=== PATIENT | female | born 1965 | race Caucasian/White ===

== ENCOUNTER → 2016-05-30 | Outpatient (CLI) | payer BC ==
--- NOTE | 2016-05-30 12:13 | MR ---
PRE AND POSTCONTRAST ENHANCED MRI OF THE BRAIN: CLINICAL HISTORY: LEFT FACIAL NUMBNESS, PTOSIS ON LEFT CONTRAST: 20 ML Multihance COMPARISON: CT brain 04/06/2016 Multiplanar and multispin-echo imaging of the brain was performed both before and after the administr ation of contrast. The ventricles, basal cisterns and sulci overlying the cerebral convexities are within normal limits. There is no evidence for midline shift or mass effect. Acute intracranial hemorrhage or extra-axial collection is not evident. There are no abnormal areas of increased or decreased signal intensity within the brain parenchyma. Following contrast administration, there is no evidence for pathologic enhancement or enhancing mass. The paranasal sinuses and mastoid air cells are well-aerated. IMPRESSION: Unremarkable pre and postcontrast enhanced MRI of the brain.
== END | disposition home or self-care (01) ==
LOC: RADMRIMAIN 09:15
PROVIDERS: ATTEND Psychiatry & Neurology Neurology
DX: H02.402 Unspecified ptosis of left eyelid (principal); R20.0 Anesthesia of skin
CPT/HCPCS: 70553; A9577

== ENCOUNTER → 2018-03-29 | Outpatient (CLI) | payer BC ==
--- NOTE | 2018-03-29 09:19 | US ---
EXAMINATION TYPE: US thyroid st tissue head/neck DATE OF EXAM: 03/29/2018 COMPARISON: Prior thyroid ultrasound dated 09/05/2015 CLINICAL HISTORY: E04.2 Nontoxic Multinodular Goiter. GLAND SIZE: Right Lobe: 5.1 x 1.9 x 1.9 cm Overall Parenchyma: heterogenous Left Lobe: 4.7 x 1.6 x 1.7 cm Overall Parenchyma: heterogeneous Isthmus Thickness: 0.4 cm NODULES RIGHT: # of nodules measured on right: 4 1. 1.1 x 0.9 x0.8 cm isoechoic solid nodule at the upper pole with well-defined margins. This nodul e is wider than tall and shows intranodular vascularity. Prior size: 1.1 x 0.8 x 0.8 cm 2. 1.0 X 0.7 x 0.8 cm hypoechoic solid nodule at the upper pole with well-defined margins; periphera l calcification as on prior. This nodule is wider than tall and shows no intranodular vascularity. Prior size: 1.3 x 1.0 x 1.1 cm 3. 0.8 X 0.5 x 0.8 cm isoechoic solid nodule at the upper pole with well-defined margins. This nodu le is wider than tall and shows intranodular vascularity. Prior size: 1.1 x 0.9 x 1.0 cm 4. 0.9 X 0.6 x 0.9 cm isoechoic solid nodule at the lower pole with well-defined margins. This nodu le is wider than tall and shows no intranodular vascularity. Not seen or definitively measured. LEFT: # of nodules measured on left: 1. 0.7 X 0.5 x 0.7 cm hypoechoic solid nodule at the mid pole with well-defined margins. This nodu le is wider than tall and shows intranodular vascularity. Prior size: 1.5 x 1.0 x 0.9 cm 2. 1.1 X 0.9 x 0.9 cm hypoechoic solid nodule at the mid pole with well-defined margins. This nodul e is wider than tall and shows no intranodular vascularity. Prior size: 1.5x 1.0 x 0.9 cm ISTHMUS: # of nodules measured in the isthmus: 0 Bilateral neck scanned, no evidence of lymphadenopathy. IMPRESSION: Multiple thyroid nodules as described. Findings are essentially stable to slightly improved, one subc entimeter right-sided nodule at the lower pole of the right lobe does not appear discrete and was not measured on prior exam
[2018-03-29 09:38] LABS: T4, Free (Free Thyroxine) 1.31 ng/dL (0.78-2.19)
== END | disposition home or self-care (01) ==
LOC: RADUSWWP 07:59
PROVIDERS: ATTEND Internal Medicine Endocrinology, Diabetes & Metabolism
DX: E04.2 Nontoxic multinodular goiter (principal)
CPT/HCPCS: 36415; 76536; 84439; 84443

== ENCOUNTER → 2018-04-15 | Outpatient (CLI) | payer BC ==
--- NOTE | 2018-04-15 13:02 | CT ---
EXAMINATION TYPE: CT abdomen pelvis w con DATE OF EXAM: 04/15/2018 COMPARISON: None HISTORY: Patient feels like something is flipping over in her abdomen, accompanied by pain. On and of f x [address] DLP: 908.5 mGycm CONTRAST: CT scan of the abdomen and pelvis is performed with Oral Contrast and with IV Contrast, patient injec tia with 100 mL of Isovue M300. FINDINGS: LUNG BASES-: No visible nodule. No infiltrate. LIVER/GB: No calcified gallstones. No space occupying hepatic lesion. Biliary tree is of normal ca liber. PANCREAS: No inflammation. No distinct mass. SPLEEN: No splenic enlargement. No lesion seen. ADRENALS: No nodule. No thickening. KIDNEYS/BLADDER: No hydronephrosis. No nephrolithiasis. No distinct renal mass. Urinary bladder g rossly unremarkable. BOWEL: Normal appendix. Normal bowel caliber. No inflammation. GENITAL ORGANS: No gross abnormality. LYMPH NODES: No greater than 1cm abdominal or pelvic lymph nodes are appreciated. AORTA: No significant abnormality. OSSEOUS STRUCTURES: No significant abnormality is seen. OTHER: No significant additional abnormality is seen. IMPRESSION: 1. No significant abnormality to account for the patient's symptoms.
== END ==
LOC: RADCTMAIN 10:54
PROVIDERS: ATTEND Family Medicine
DX: R10.9 Unspecified abdominal pain (principal)
CPT/HCPCS: 74177; Q9967

== ENCOUNTER → 2018-05-04 | Outpatient (CLI) | payer BC ==
--- NOTE | 2018-05-04 14:53 | BD ---
EXAMINATION TYPE: Axial Bone Density DATE OF EXAM: 05/04/2018 COMPARISON: 09.17.2015 CLINICAL HISTORY: Z 78.0. Asymptomatic post menopausal female. Osteoporosis screening. Height: 65 Weight: 177.9 FRAX RISK QUESTIONS: Alcohol (3 or more units per day): no Family History (Parent hip fracture): no Glucocorticoids (More than 3mos): no (Ex: prednisone, prednisolone, methylprednisolone, dexamethasone, and hydrocortisone). History of Fracture in Adulthood: no Secondary Osteoporosis: 1. Type 1 Diabetes: no 2. Hyperthyroidism: no 3. Menopause before 45: yes 4. Malnutrition: no 5. Chronic liver disease: no Rheumatoid Arthritis: no Current Tobacco Use: yes RISK FACTORS HISTORY OF: Family History of Osteoporosis: no Active: yes Diet low in dairy products/other sources of calcium: no Postmenopausal woman: hysterectomy 9 years ago Lost more than 2 inches in height since high school: no MEDICATIONS: fibromyalgia med, migraine med Additional History: EXAM MEASUREMENTS: Bone mineral densitometry was performed using the [employer]. Bone mineral density as measured about the Lumbar spine is: ----- L1-L4(G/cm2): 1.204 T Score Values are as follows: ----- L2: -0.3 ----- L3: 0.3 ----- L4: 0.9 ----- L1-L4: 0.2 Bone mineral density has: increased 6.2 % since study of: 09.17.2015 Bone mineral density about the R hip (g/cm2): 0.973 Bone mineral density about the L hip (g/cm2): 0.987 T Score values are as follows: -----R Neck: -0.5 -----L Neck: -0.4 -----R Total: 0.9 -----L Total: 0.9 Bone mineral density has: increased 1.1 % since study of: 09.17.2015 IMPRESSION: Normal (Values between +1 and -1 indicate normal bone mass). Consider repeating this study in 5 year s or sooner if there is some new clinical indication. NOTE: T-SCORE=SD OF THE YOUNG ADULT MEAN.
--- NOTE | 2018-05-08 14:24 | MM ---
Reason for exam: screening (asymptomatic). Last mammogram was performed 2 years and 8 months ago. History: Taking other hormone. Took bio-identical. MG 3D Screening Mammo W/Cad Bilateral CC and MLO view(s) were taken. Prior study comparison: September 17, 2015, bilateral MG 3d screening mammo w/cad. The breast tissue is heterogeneously dense. This may lower the sensitivity of mammography. No significant changes when compared with prior studies. ASSESSMENT: Negative, BI-RAD 1 RECOMMENDATION: Routine screening mammogram of both breasts in 1 year.
== END | disposition home or self-care (01) ==
LOC: RADMAMWWP 13:41
PROVIDERS: ATTEND Family Medicine
DX: Z12.31 Encounter for screening mammogram for malignant neoplasm of breast (principal); Z78.0 Asymptomatic menopausal state
CPT/HCPCS: 77063; 77067; 77080

== ENCOUNTER → 2019-05-04 | Outpatient (CLI) | payer BC ==
[2019-05-04 11:11] LABS: Basophils # (A) 0.1 k/uL (0-0.2); Basophils % (A) 1 %; Eosinophils # (A) 0.4 k/uL (0-0.7); Eosinophils % (A) 5 %; HCT 45.4 % (34.0-46.0); HGB 14.5 gm/dL (11.4-16.0); Lymphocytes # (A) 2.3 k/uL (1.0-4.8); Lymphocytes % (A) 31 %; MCH 30.6 pg (25.0-35.0); MCV 95.8 fL (80.0-100.0); Mean Platelet Volume 8.1; Monocytes # (A) 0.3 k/uL (0-1.0); Monocytes % (A) 4 %; Neutrophils # (A) 4.2 k/uL (1.3-7.7); Neutrophils % (A) 57 %; Platelet Count 247 k/uL (150-450); RBC 4.74 m/uL (3.80-5.40); RDW 13.1 % (11.5-15.5); WBC 7.4 k/uL (3.8-10.6)
[2019-05-04 17:06] LABS: African American GFR (CKD) 114.6 (60.0-200.0); Albumin 4.6 g/dL (3.80-4.90); Albumin/Globulin Ratio 2.56 (1.60-3.17); Anion Gap 6.5 mmol/L (4.00-12.00); BUN/Creat Ratio 18.57 Ratio (12.00-20.00); Calcium 9.7 mg/dL (8.7-10.3); Carbon Dioxide 28.5 mmol/L (21.6-31.8); Chol/HDL Ratio 3.94; Globulin 1.8 g/dL (1.6-3.3); LDL Cholesterol,Calculated 164.2 mg/dL (0.0-131.0); Non-African American GFR(CKD) 98.9 (60.0-200.0); Potassium 4.6 mmol/L (3.5-5.5); Total Bilirubin 0.5 mg/dL (0.2-1.2); Total Protein 6.4 g/dL (6.2-8.2); VLDL Calculation 17.8 mg/dL (5.00-40.00)
[2019-05-04 17:13] LABS: T4, Free (Free Thyroxine) 1.2 ng/dL (0.80-1.80)
== END | disposition home or self-care (01) ==
LOC: LABWHC1 09:49
PROVIDERS: ATTEND Family Medicine
DX: Z00.00 Encounter for general adult medical examination without abnormal findings (principal)
CPT/HCPCS: 36415; 80053; 80061; 84439; 84443; 85025

== ENCOUNTER → 2019-05-27 | Outpatient (CLI) | payer BC ==
--- NOTE | 2019-05-29 14:29 | MM ---
Reason for exam: screening (asymptomatic). Last mammogram was performed 1 year and 1 month ago. History: Taking other hormone. Physical Findings: A clinical breast exam by your physician is recommended on an annual basis and results should be correlated with mammographic findings. MG 3D Screening Mammo W/Cad Bilateral CC and MLO view(s) were taken. Prior study comparison: May 04, 2018, bilateral MG 3d screening mammo w/cad. September 17, 2015, bilateral MG 3d screening mammo w/cad. The breast tissue is heterogeneously dense. This may lower the sensitivity of mammography. There is no discrete abnormality. No significant changes when compared with prior studies. ASSESSMENT: Negative, BI-RAD 1 RECOMMENDATION: Routine screening mammogram of both breasts in 1 year.
== END | disposition home or self-care (01) ==
LOC: RADMAMWWP 08:08
PROVIDERS: ATTEND Family Medicine
DX: Z12.39 Encounter for other screening for malignant neoplasm of breast (principal)
CPT/HCPCS: 77063; 77067

== ENCOUNTER → 2019-06-29 | Outpatient (CLI) | payer BC ==
--- NOTE | 2019-06-29 16:01 | US ---
EXAMINATION TYPE: US thyroid st tissue head/neck DATE OF EXAM: 06/29/2019 COMPARISON: US 03/29/2018 CLINICAL HISTORY: E04.2 Nontoxic multinodular goiter. F/U Nodules GLAND SIZE: Right Lobe: 5.1 x 1.8 x 1.8 cm Overall Parenchyma: heterogenous Left Lobe: 4.6 x 1.6 x 1.5 cm Overall Parenchyma: heterogeneous Isthmus Thickness: 0.4 cm NODULES RIGHT: # of nodules measured on right: 3 1. 0.9 X 0.8 x 0.7 cm isoechoic solid nodule at the upper pole with poorly defined margins; This no dule is wider than tall and shows intranodular vascularity. Prior size: 1.1 x 0.9 x 0.8 cm 2. 0.8 X 0.6 x 0.8 cm hypoechoic solid nodule at the mid pole with well-defined margins; This nodule is wider than tall and shows intranodular vascularity. Prior size: 1.0 x 0.7 x 0.8 cm 3. 0.9 X 0.6 x 0.8 cm isoechoic solid nodule at the mid pole with well-defined margins; This nodule is wider than tall and shows intranodular vascularity. Prior size: 0.8 x 0.5 x 0.8 cm LEFT: # of nodules measured on left: 1 1. 0.9 X 0.5 x 0.6 cm isoechoic solid nodule at the mid pole with poorly defined margins; This nod ule is wider than tall and shows intranodular vascularity. Prior size: 1.1 x 0.9 x 0.9 cm Bilateral neck scanned, no evidence of lymphadenopathy. Stable nodules with slight decrease in size. IMPRESSION: Bilateral subcentimeter thyroid nodules with no interval growth in comparison to the prio r.
[2019-06-29 16:55] LABS: T4, Free (Free Thyroxine) 1.23 ng/dL (0.78-2.19)
== END | disposition home or self-care (01) ==
LOC: RADUSWWP 15:28
PROVIDERS: ATTEND Internal Medicine Endocrinology, Diabetes & Metabolism
DX: E04.2 Nontoxic multinodular goiter (principal)
CPT/HCPCS: 36415; 76536; 84439; 84443

== ENCOUNTER → 2021-01-17 | Outpatient (CLI) | payer BC ==
[2021-01-17 15:34] VITALS: BP 112/75; PULSE 75; RESP 16; TEMP 98.5
--- NOTE | 2021-01-17 15:47 | P.GSHP ---
History of Present Illness H&P Date: 01/17/21 Chief Complaint: abnormal left breast ultrasound Radha is a 55 year old white female seen in consultation for Dr. Ming Marcum regarding an abnormal ultrasound of her left breast. She was complaining of some discomfort in her right breast, however radiographic evaluation of both breasts revealed a small questionable lesion in the left breast. At this time she does not feel any lumps masses or nodules of concern in either breast. She is not complaining of any nipple discharge or skin changes. Caffeine: 5 cups/day nicotine: 1PPD since 16 chocolate: occasional Family History: none Hormonal History: menarche: 12 breast fed: yes, age at first : 21 menopause: hysterectomy at 44, left ovaries BCP: 10 years hormones: none Surgical History: hysterectomy appendectomy right hand surgery Medical History: fibromyalgia Social History: smoke: 1 /PPD alcohol: occasional drugs: none - Constitutional Constitutional: Reports sweats - EENT Eyes: denies blurred vision, denies pain Ears: deny: decreased hearing, tinnitus Ears, nose, mouth and throat: Reports headache, Denies sore throat - Breasts Breasts: bilateral: as per HPI - Cardiovascular Cardiovascular: Denies chest pain, Denies shortness of breath - Respiratory Comment: smoker - Gastrointestinal Gastrointestinal: Denies abdominal pain, Denies diarrhea, Denies nausea, Denies vomiting - Genitourinary (Female) Genitourinary: Denies dysuria, Denies hematuria - Menstruation Menstruation: Reports post hysterectomy - Musculoskeletal Comment: fibromyalgia Musculoskeletal: Denies myalgias - Integumentary Integumentary: Denies pruritus, Denies rash - Neurological Neurological: Reports numbness, Denies weakness - Psychiatric Psychiatric: Denies anxiety, Denies depression - Endocrine Endocrine: Reports fatigue, Denies weight change - Hematologic/Lymphatic Comment: none - Allergic/Immunologic Allergic/Immunologic: Reports as per HPI, Reports seasonal allergies Past Medical History Past Medical History: Asthma, Neurologic Disorder Additional Past Medical History / Comment(s): migraine History of Any Multi-Drug Resistant Organisms: None Reported Past Surgical History: Appendectomy, Hysterectomy, Orthopedic Surgery Past Anesthesia/Blood Transfusion Reactions: Previous Problems w/ Anesthesia Additional Past Anesthesia/Blood Transfusion Reaction / Comment(s): Use minimal anaesthesia Past Psychological History: No Psychological Hx Reported Past Alcohol Use History: Occasional Past Drug Use History: None Reported Medications and Allergies Home Medications Medication Instructions Recorded Confirmed Type Butalb/Acetaminophen/Caffeine 1 - 2 each PO Q4HR 01/19/15 09/20/15 History [Fioricet 50-300-40 mg Capsule] Aspirin/Acetaminophen/Caffeine 1 each PO DAILY PRN 01/17/21 01/17/21 History [Excedrin Migraine Caplet] Allergies Allergy/AdvReac Type Severity Reaction Status Date / Time erythromycin base Allergy Unknown Verified 01/17/21 15:28 Sulfa (Sulfonamide Allergy Swelling Verified 01/17/21 15:28 Antibiotics) Surgical - Exam BMI 27 - General moderate distress - Eyes normal ocular movement - ENT normal pinna - Neck trachea midline - Respiratory normal respiratory effort, clear to auscultation - Cardiovascular Heart Sounds: normal: S1, S2 - Abdomen Abdomen: soft - Integumentary normal turgor - Neurologic no disoriented, no combative - Musculoskeletal normal gait - Psychiatric oriented to time, oriented to person, oriented to place, speech is normal Breast Exam: Bra: 34C inspection: bilateral grade 2 ptosis palpation: right breast: Multi-positional exam fibrocystic changes no dominant masses or not his of concern Right axilla: No adenopathy of concern Left breast: Multiple positional exam fibrocystic changes, no dominant masses or nodules of concern Left axilla: No adenopathy of concern Particular attention of the left breast did not reveal any palpable lesions of concern Results Ultrasound reviewed with Dr. Cheung Assessment and Plan Assessment: Impression: 1. Fibrocystic breast changes bilateral 2. Ultrasound change noted in the left breast probably benign Plan: 1. Obtain results of bilateral mammogram most recent 2. Repeat left breast ultrasound in 6 months with physician exam at that time 3. Patient encouraged to decrease caffeine intake and stop smoking Cc: Dr. Ming Marcum
== END | disposition home or self-care (01) ==
LOC: WWCWWP 14:56
PROVIDERS: ATTEND Surgery
DX: Z53.9 Procedure and treatment not carried out, unspecified reason (principal)

== ENCOUNTER → 2021-06-13 | Outpatient (CLI) | payer BC ==
--- NOTE | 2021-06-13 11:25 | USB ---
Reason for exam: clinical finding. History: Taking other hormone. Indicated problem(s): palpable abnormality in the left breast. Physical Findings: Nurse Summary: palpable on left at 12 o'clock, soft, mobile (nurse valencia). US Breast LT Left complete breast ultrasound includes all four quadrants, the retroareolar region and axilla. Finding demonstrates a 0.5 x 0.6 x 0.3cm oval, cystic lesion at 12 o'clock, a 0.3 x 0.3 x 0.2cm oval, cystic lesion at 2 o'clock and a 1.4 x 2.2 x 0.9cm lymph node at the axilla. These results were verbally communicated with the patient and result sheet given to the patient on 06/13/21. ASSESSMENT: Benign, BI-RAD 2 RECOMMENDATION: Routine screening mammogram of both breasts in 7 months. Back on schedule for December 2021. Manage patient on a clinical basis.
== END | disposition home or self-care (01) ==
LOC: RADUSWWP 09:46
PROVIDERS: ATTEND Surgery
DX: N60.02 Solitary cyst of left breast (principal)

== ENCOUNTER → 2021-06-19 | Outpatient (CLI) | payer BC ==
[2021-06-19 16:01] VITALS: BP 108/77; PULSE 83; RESP 17; TEMP 98.1
--- NOTE | 2021-06-19 16:36 | P.PN ---
Subjective Progress Note Date: 06/19/21 Radha is a 55 year old white female seen in consultation for Dr. Ming Marcum regarding an abnormal ultrasound of her left breast. She was complaining of some discomfort in her right breast, however radiographic evaluation of both breasts revealed a small questionable lesion in the left breast. At this time she does not feel any lumps masses or nodules of concern in either breast. She is not complaining of any nipple discharge or skin changes. 06-19-21 repeat left breast ultrasound on 06-13-21 was benign BIRAD 2. Is not lumps masses or nodules of concern. She is not complaining of any breast pain she is not complaining of any nipple discharge or skin changes. Caffeine: 5 cups/day nicotine: 1PPD since 16 chocolate: occasional Family History: none Hormonal History: menarche: 12 breast fed: yes, age at first : 21 menopause: hysterectomy at 44, left ovaries BCP: 10 years hormones: none Surgical History: hysterectomy appendectomy right hand surgery Medical History: fibromyalgia Social History: smoke: 1 /PPD alcohol: occasional drugs: none - Constitutional Constitutional: Reports sweats - EENT Eyes: denies blurred vision, denies pain Ears: deny: decreased hearing, tinnitus Ears, nose, mouth and throat: Reports headache, Denies sore throat - Breasts Breasts: bilateral: as per HPI - Cardiovascular Cardiovascular: Denies chest pain, Denies shortness of breath - Respiratory Comment: smoker - Gastrointestinal Gastrointestinal: Denies abdominal pain, Denies diarrhea, Denies nausea, Denies vomiting - Genitourinary (Female) Genitourinary: Denies dysuria, Denies hematuria - Menstruation Menstruation: Reports post hysterectomy - Musculoskeletal Comment: fibromyalgia Musculoskeletal: Denies myalgias - Integumentary Integumentary: Denies pruritus, Denies rash - Neurological Neurological: Reports numbness, Denies weakness - Psychiatric Psychiatric: Denies anxiety, Denies depression - Endocrine Endocrine: Reports fatigue, Denies weight change - Hematologic/Lymphatic Comment: none - Allergic/Immunologic Allergic/Immunologic: Reports as per HPI, Reports seasonal allergies Objective - Vital Signs Vital signs: Vital Signs Temp 98.1 F 06/19/21 15:57 Pulse 83 06/19/21 15:57 Resp 17 06/19/21 15:57 BP 108/77 06/19/21 15:57 Pulse Ox 99 02/24/22 15:57 Intake & Output 06/18/21 06/19/21 06/19/21 18:59 06:59 18:59 Weight 77.111 kg - Constitutional General appearance: Present: cooperative - EENT Eyes: Present: EOMI ENT: Present: hearing grossly normal - Neck Neck: Present: normal ROM - Musculoskeletal Musculoskeletal: Present: gait normal - Psychiatric Psychiatric: Present: A&O x's 3, appropriate affect, intact judgment & insight Assessment and Plan Assessment: impression: stable ultrasound of the left breast Plan: repeat bilateral 7 months with exam at that time cc: Dr. Ming Marcum
== END | disposition home or self-care (01) ==
LOC: WWCWWP 15:45
PROVIDERS: ATTEND Surgery
DX: Z53.9 Procedure and treatment not carried out, unspecified reason (principal)

== ENCOUNTER → 2022-01-27 | Outpatient (CLI) | payer BC ==
--- NOTE | 2022-01-28 19:54 | MM ---
Reason for Exam: Screening (asymptomatic). Last mammogram was performed 2 year(s) and 8 month(s) ago. Patient History: Menarche at age 13. First Full-Term at age 21. Hysterectomy at age 44. Postmenopausal. Risk Values: Rosa 5 year model risk: 1.1%. NCI Lifetime model risk: 7.2%. Prior Study Comparison: 09/17/2015 Bilateral Screening Mammogram, [facility]. 05/04/2018 Bilateral Screening Mammogram, [facility]. 05/27/2019 Bilateral Screening Mammogram, [facility]. Tissue Density: The breast tissue is heterogeneously dense. This may lower the sensitivity of mammography. Findings: Analyzed By CAD. No suspicious groups of microcalcifications, spiculated or lobular masses, architectural distortion or other secondary signs of malignancy are mammographically apparent. Overall Assessment: Negative, BI-RAD 1 Management: Screening Mammogram of both breasts in 1 year. A negative mammogram report should not preclude additional follow up of suspicious palpable abnormalities. Patient should continue monthly self breast exam. A clinical breast exam by your physician is recommended on an annual basis and results should be correlated with mammographic findings. Electronically signed and approved by: Dax Celaya D.O. Radiologis
== END | disposition home or self-care (01) ==
LOC: RADMAMWWP 09:54
PROVIDERS: ATTEND Surgery
DX: Z12.31 Encounter for screening mammogram for malignant neoplasm of breast (principal)
CPT/HCPCS: 77063; 77067

== ENCOUNTER → 2022-02-13 | Outpatient (CLI) | payer BC ==
[2022-02-13 10:18] VITALS: BP 119/73; PULSE 75; RESP 17; TEMP 98.2
--- NOTE | 2022-02-13 10:43 | P.PN ---
Subjective Progress Note Date: 02/13/22 Principal diagnosis: fibrocystic breast changes Radha is a 56 year old white female with a history of fibrocystic breast changes. Her last bilateral mammogram was on 01-27-22. This was reviewed with radiologist Dr. Olsen. It was read as BIRAD 1. She does not feel any lumps masses or nodules of concern in either breast. The pain that she had in her right breast in the past has improved. Caffeine: 5 cups/day nicotine: 1PPD since 16 chocolate: occasional Family History: none Hormonal History: menarche: 12 breast fed: yes, age at first : 21 menopause: hysterectomy at 44, left ovaries BCP: 10 years hormones: none Surgical History: hysterectomy appendectomy right hand surgery Medical History: fibromyalgia Social History: smoke: 1 /PPD alcohol: occasional drugs: none - Constitutional Constitutional: Reports sweats - EENT Eyes: denies blurred vision, denies pain Ears: deny: decreased hearing, tinnitus Ears, nose, mouth and throat: Reports headache, Denies sore throat - Breasts Breasts: bilateral: as per HPI - Cardiovascular Cardiovascular: Denies chest pain, Denies shortness of breath - Respiratory Comment: smoker - Gastrointestinal Gastrointestinal: Denies abdominal pain, Denies diarrhea, Denies nausea, Denies vomiting - Genitourinary (Female) Genitourinary: Denies dysuria, Denies hematuria - Menstruation Menstruation: Reports post hysterectomy - Musculoskeletal Comment: fibromyalgia Musculoskeletal: Denies myalgias - Integumentary Integumentary: Denies pruritus, Denies rash - Neurological Neurological: Reports numbness, Denies weakness - Psychiatric Psychiatric: Denies anxiety, Denies depression - Endocrine Endocrine: Reports fatigue, Denies weight change - Hematologic/Lymphatic Comment: none - Allergic/Immunologic Allergic/Immunologic: Reports as per HPI, Reports seasonal allergies Past Medical History Past Medical History: Asthma, Neurologic Disorder Additional Past Medical History / Comment(s): migraine History of Any Multi-Drug Resistant Organisms: None Reported Past Surgical History: Appendectomy, Hysterectomy, Orthopedic Surgery Past Anesthesia/Blood Transfusion Reactions: Previous Problems w/ Anesthesia Additional Past Anesthesia/Blood Transfusion Reaction / Comment(s): Use minimal anaesthesia Past Psychological History: No Psychological Hx Reported Past Alcohol Use History: Occasional Past Drug Use History: None Reported Objective - Vital Signs Vital signs: Vital Signs Temp 98.2 F 02/13/22 09:50 Pulse 75 02/13/22 09:50 Resp 17 02/13/22 09:50 BP 119/73 02/13/22 09:50 Pulse Ox 98 02/13/22 09:50 FiO2 Intake & Output 02/12/22 02/13/22 02/13/22 18:59 06:59 18:59 Weight 64.41 kg - Exam BMI: 22.9 - Constitutional General appearance: Present: cooperative - EENT Eyes: Present: EOMI ENT: Present: hearing grossly normal - Neck Neck: Present: normal ROM - Respiratory Respiratory: bilateral: CTA - Cardiovascular Rhythm: regular Heart sounds: normal: S1, S2 - Gastrointestinal General gastrointestinal: Present: soft - Integumentary Integumentary: Present: normal turgor - Musculoskeletal Musculoskeletal: Present: gait normal - Psychiatric Psychiatric: Present: A&O x's 3, appropriate affect, intact judgment & insight Assessment and Plan Assessment: Impression: Fibrocystic breast changes stable Plan: Bilateral mammogram in 1 year with [facility] Patient is going to follow with primary care doctor with any questions or concerns Cc: Dr. Ming Marcum
== END | disposition home or self-care (01) ==
LOC: WWCWWP 09:03
PROVIDERS: ATTEND Surgery
DX: Z53.9 Procedure and treatment not carried out, unspecified reason (principal)

== ENCOUNTER → 2023-03-22 | Outpatient (CLI) | payer BC ==
--- NOTE | 2023-03-23 19:03 | MM ---
Reason for Exam: Screening (asymptomatic). Last mammogram was performed 1 year(s) and 1 month(s) ago. Patient History: Menarche at age 13. First Full-Term at age 21. Hysterectomy at age 44. Postmenopausal. Risk Values: Rosa 5 year model risk: 1.1%. NCI Lifetime model risk: 7.1%. Prior Study Comparison: 05/04/2018 Bilateral Screening Mammogram, [facility]. 05/27/2019 Bilateral Screening Mammogram, [facility]. 01/27/2022 Bilateral MG 3D screening mammo w/cad, [facility]. Tissue Density: The breast tissue is heterogeneously dense. This may lower the sensitivity of mammography. Findings: Analyzed By CAD. Pattern appears symmetrical and stable. No significant interval change. No suspicious groups of microcalcifications, spiculated or lobular masses, architectural distortion or other secondary signs of malignancy are mammographically apparent. Overall Assessment: Benign, BI-RAD 2 Management: Screening Mammogram of both breasts in 1 year. A negative mammogram report should not preclude additional follow up of suspicious palpable abnormalities. Patient should continue monthly self breast exam. A clinical breast exam by your physician is recommended on an annual basis and results should be correlated with mammographic findings. Electronically signed and approved by: Dax Celaya D.O. Radiologis
== END | disposition home or self-care (01) ==
LOC: RADMAMWWP 15:00
PROVIDERS: ATTEND Family Medicine
DX: Z12.31 Encounter for screening mammogram for malignant neoplasm of breast (principal); Z78.0 Asymptomatic menopausal state
CPT/HCPCS: 77063; 77067